=== PATIENT | female | born 1955 | race Caucasian/White ===

== ENCOUNTER 2018-06-06 11:15 | Day surgery (SDC) | payer OTHER ==
[~2018-06-06] VITALS: Ht 172.7 cm; Wt 106.6 kg
--- NOTE | ~2018-06-06 | OP ---
PATIENT NAME: CARIN GOMEZ MEDICAL RECORD: [id number] :55 LOCATION:D[facility]OPS ADMISSION DATE: SURGEON: KARIS RODRIGUEZ MD DATE OF OPERATION: 06/06/2018 PROCEDURE: Colonoscopy with biopsy. MARKETING PLANNER: Karis Rodriguez MD SCOPE: Olympus video colonoscope. MEDICATIONS: Per TIVA anesthesia. Please see the anesthesiology log. The patient received 200 mg of propofol for this procedure, O2 at 4 liters. INDICATION FOR THE PROCEDURE: Surveillance colonoscopy secondary to history of polyps. FINDINGS: Informed consent was given. The patient was made comfortable with the above medications. After reaching an adequate level of sedation by slow IV push, the patient was placed on her left side. The rectal exam revealed good sphincter tone. No fissures or fistulas were appreciated. No external skin tags were seen. The colonoscope was advanced to the cecum, where the ileocecal valve and the appendiceal orifice were identified. On withdrawal of the scope, mucosa was carefully inspected. The mucosa in the colon was felt to be completely normal until reaching the rectum, where some scattered erythema and edema were appreciated and a biopsy was obtained. No polyps, masses, or diverticula were observed throughout the entire 6 feet of colon, which was examined. On retroflexion and final withdrawal of the scope, hemorrhoids were seen. IMPRESSION: 1. Normal cecum. Normal ileocecal valve and appendiceal orifice. 2. No polyps, masses, or diverticula appreciated. 3. Inflammation noted within the rectal vault. Biopsy obtained. This is significant for very mild proctitis. 4. Minimal internal hemorrhoids. 5. Minimal external hemorrhoids. PLAN: 1. No aspirin or anti-inflammatory drugs if possible for 14 days. 2. High-fiber diet. 3. The patient should take probiotics daily. Return to clinic on a p.r.n. basis. TRANSINT:[id number] Voice Confirmation ID: [id number] DOCUMENT ID: [id number] OPERATIVE REPORT [id number] CARIN GOMEZ KARIS RODRIGUEZ MD CC: MARY MENSAH [id number] DICTATION DATE: 06/06/18 1315 SENIOR PLANNER: 06/06/18 1405 [id number] [place] [id number]
[~2018-06-06 11:15] MED LIST: DESERYL100 MG PO; DIOVAN HCT 160/1 TA1 PO; FISH OIL 1,2001 CAP PO; FLINTSTONE1 TAB.CHEW PO; MOBIC7.5 MG PO; PEPCID40 MG PO; PRILOSEC20 MG PO; PROAIR HFA8.5 GM INH; PROZAC40 MG PO; QVAR8.7 G1 INH; SINGULAIR10 MG PO; ZOCOR10 MG PO
[2018-06-06 11:49] LABS: HEMATOCRIT 36.9 % (36.0-48.0); HEMOGLOBIN 12.4 g/dL (12-16); MCH 29.7 pg (26.0-34.0); MCHC 33.6 g/dL (31.0-37.0); MCV 88.3 fL (80.0-100.0); MEAN PLATELET VOLUME 9.1 fL (7.4-10.4); RBC 4.18 10x6/uL (4.00-5.40); WBC 8.9 10x3/uL (4.8-10.8)
[2018-06-06] MEDS ORDERED: SYMBICORT 80-10.2 GM INH (12:36)
[2018-06-06 12:48] VITALS: BP 109/61; Ht 172.7 cm; Wt 106.6 kg
--- NOTE | 2018-06-06 14:50 | NUR ---
RIGHT HAND PIV DC'D WITH TIP INTACT. PATIENT WALKING AROUND ROOM, DENIES DIZZINESS. DISCHARGE INSTRUCTIONS REVIEWED WITH PATIENT
--- NOTE | 2018-06-06 15:10 | NUR ---
PATIENT DISCHARGED HOME VIA WHEELCHAIR TO PRIVATE VEHICLE WITH FRIEND
== END 2018-06-06 15:10 | disposition home or self-care (01) ==
LOC: D.OPS 11:15
PROVIDERS: Anesthesiology; ATTEND Internal Medicine Gastroenterology
DX: K62.89 Other specified diseases of anus and rectum (principal); K64.8 Other hemorrhoids; K64.4 Residual hemorrhoidal skin tags; Z86.010 Personal history of colon polyps